=== PATIENT | female | born 1995 | race African-American/Black ===

== ENCOUNTER 2021-10-15 09:29 | Emergency (ER) | payer OTHER, SELFPAY ==
--- NOTE | ~2021-10-15 | CT_ITS ---
EXAMINATION: CT abdomen pelvis w con EXAM DATE: 10/15/2021 11:23 INDICATION: Abdominal pain. Umbilical region pain this morning. History of irritable bowel syndrome. TECHNIQUE: Spiral CT of the abdomen and pelvis was performed following intravenous injection of 100 m L Omnipaque 350. Axial, coronal and sagittal images of the abdomen and pelvis were reviewed. The do se-length product (DLP) for this examination was 693.32 mGy-cm. The exposure was tailored according to patient size (auto mA exposure control), and iterative reconstruction (ASIR) was used as additiona l dose reduction technique. There is no prior study for comparison. FINDINGS: The liver, spleen, adrenal glands and pancreas are unremarkable. Gallbladder is unremarkab le. No biliary obstruction. Portal and splenic veins are patent. Kidneys enhance symmetrically. T here is no hydronephrosis. The uterus is anteverted and morphologically normal. Evidence of a recen tly ruptured right ovarian follicle. The bladder is unremarkable. There is no retroperitoneal or pel jonh lymphadenopathy. Trace free pelvic fluid. The appendix is normal. The stomach and small bowel are unremarkable. There is colonic fluid, corre late for diarrhea. No free intraperitoneal gas. The heart is normal in size. There are no perica rdial or pleural effusions. The lung bases are unremarkable. The bones are unremarkable. IMPRESSION: 1. Colonic fluid, possible diarrhea or gastroenteritis. 2. Recently ruptured right ovarian follicle with trace free pelvic fluid. Reviewed, dictated and finalized at location A. PERSON
[2021-10-15 09:29] VITALS: BP 106/63; PULSE 77; RESP 20; TEMP 36.8; O2SAT 99
[2021-10-15 09:50] LABS: Basophils Percent Auto 0.2 % (0.2-1.2); Eosinophils Percent Auto 0.1 % (0-4.4); Hematocrit 43.7 % (37.0-47.0); Hemoglobin 14.7 g/dL (12.0-15.0); Immature Granulocyte Absolute 0.05 K/mm3 (0.00-0.031); Immature Granulocyte Percent A 0.5 % (0-0.5); Lymphocytes Absolute Auto 0.49 K/mm3 (0.9-3.2); Lymphocytes Percent Auto 4.9 % (18.3-44.2); Mean Corpuscular HGB Conc 33.6 g/dl (32-36); Mean Corpuscular Hemoglobin 31.5 pg (26-34); Mean Corpuscular Volume 93.8 fl (80-100); Monocytes Absolute Auto 0.5 K/mm3 (0.1-0.6); Monocytes Percent Auto 5.3 % (2.6-8.5); Neutrophils Absolute Auto 8.8 K/mm3 (1.3-6.7); Platelet Count Result 286 k/mm3 (150-375); Red Blood Count 4.66 M/mm3 (4.2-5.4); Red Cell Distribution Width 13.1 % (11.5-14.5); White Blood Count 9.9 K/mm3 (4.5-10.0)
--- NOTE | 2021-10-15 09:56 | PC.NURSE ---
RN asked pt. for urine. pt. states she cannot go.
[2021-10-15] MEDS: ONDANSETRON INJ 4 MG/2 ML VIAL IV PUSH (10:02)
[2021-10-15] MEDS: SODIUM CHLORIDE 0.9% IV 1,000 ML 999 ML IV CONT (10:02)
[2021-10-15 10:24] LABS: Alanine Aminotransferase 18 U/L (4-35); Albumin Level 4.2 g/dL (3.5-5.1); Alkaline Phosphatase 62 U/L (38-126); Anion Gap 9 mmol/L (8-16); Aspartate Amino Transferase 29 U/L (14-36); Bilirubin,Total 0.6 mg/dL (0.2-1.3); Blood Urea Nitrogen 14 mg/dL (7-17); Calcium 9.2 mg/dL (8.4-10.2); Carbon Dioxide 25 mmol/L (22-30); Chloride 104 mmol/L (98-107); Estimated CRCL calculation 73 ml/min; Estimated Glomerular Filt Rate > 60; Glucose 116 mg/dL (65-110); Lipase 29 U/L (23-300); Sodium 138 mmol/L (137-145)
[2021-10-15 10:34] LABS: Add Urine Microscopic? YES; Appearance Urine Clear (Clear); Bacteria Urine Trace /hpf; Bilirubin Urine Negative (Negative); Blood Urine Negative (Negative); Color Urine Yellow (Yellow); Glucose Urine UA Negative (Negative); Ketones Urine Negative (Negative); Leukocyte Esterase Ur Negative LEU/UL (Negative); Mucus Urine Heavy /lpf; Nitrate Urine Negative (Negative); Protein Urine 1+ mg/dL (Negative); Squamous Epithelial Cell Urine Many /hpf (Few); Urobilinogen Urine Negative mg/dL (<2.0); WBC Urine 0-3 /hpf
[2021-10-15 11:00] VITALS: BP 99/71; PULSE 74; RESP 14; O2SAT 97
[2021-10-15] MEDS: DICYCLOMINE HCL INJ 20 MG/2 ML VIAL IM (12:52)
[2021-10-15 13:00] VITALS: BP 110/70; PULSE 74; RESP 19; O2SAT 99
--- NOTE | 2021-10-15 13:13 | ED.GENADULT ---
HPI - General Adult General Chief complaint: Abdominal Pain Stated complaint: nausea/vomiting Time Seen by Provider: 10/15/21 09:31 Source: patient Mode of arrival: ambulatory Limitations: no limitations History of Present Illness HPI narrative: Patient is a 26-year-old female presenting with chief complaint of umbilical pain, nausea vomiting and diarrhea that began suddenly at 2 AM. Patient reports she had multiple episodes of vomiting and a few episodes of diarrhea. Patient report abdominal pain around her umbilicus. Patient reports a history of IBS. Patient also reports an 3 weeks ago. Patient reports that she had a follow-up to make sure she did not have retained products, but cannot remember when that appointment was or who she saw. Patient reports that she was seen at the [facility]. Patient denies fever, chills, cough, sob, or chest pain. She states she is a frequent marijuana user. Patient denies medications for her symptoms. Related Data Allergies Allergy/AdvReac Type Severity Reaction Status Date / Time No Known Allergies Allergy Verified 10/15/21 09:32 Review of Systems Review of Systems: CONSTITUTIONAL: Denies fever, chills, or sweats. EYES: Denies visual changes, redness, or discharge. ENT: Denies rhinorrhea, congestion, sore throat, or otalgia. CARDIOVASCULAR: Denies chest pain, palpitations, or edema. RESPIRATORY: Denies cough or dyspnea. GASTROINTESTINAL: Reports abdominal pain, nausea, vomiting, or diarrhea. GENITOURINARY: Denies dysuria or hematuria. SKIN: Denies rash or itching. MUSCULOSKELETAL: Denies back pain, joint pain, or myalgia. NEUROLOGIC: Denies headache, numbness, dizziness, or weakness. PSYCHIATRIC: Denies anxiety or depression. Exam Narrative: GENERAL: Well-appearing, well-nourished, tearful and rolling around the bed complaining of pain. HEAD: Normocephalic, atraumatic. EYES: PERRLA and EOMI. CHEST: Clear to auscultation. No respiratory distress. No wheezes rales or rhonchi HEART: Regular rate and rhythm. No murmur heard. Normal peripheral pulses. ABDOMEN: Soft, diffusely tender around umbilicus, nondistended, normal active bowel sounds. Patient actively vomiting. EXTREMITIES: Normal range of motion. No edema. SKIN: Warm, dry, no rash. NEURO: No focal deficits. Alert and oriented x3. PSYCH: Normal mood and affect. Course Vital Signs Vital signs: Vital Signs Temperature 98.2 F 10/15/21 09:29 Pulse Rate 77 10/15/21 09:29 Respiratory Rate 20 10/15/21 09:29 Blood Pressure 106/63 10/15/21 09:29 Pulse Oximetry 99 10/15/21 09:29 Temperature 98.2 F 10/15/21 09:29 Pulse Rate 70 10/15/21 13:55 Respiratory Rate 20 10/15/21 13:55 Blood Pressure 102/84 10/15/21 13:55 Pulse Oximetry 96 10/15/21 13:55 Medical Decision Making MDM Narrative Medical decision making narrative: Patient has not had continuation of vomiting or diarrhea in the emergency department. Patient vital signs are stable. Patient CT was negative for acute emergent findings. Patient has received hydration and antiemetics. Patient has been able to pass p.o. challenge. She is not orthostatic. Patient's lab work is within normal limits. Patient has been COVID tested. Patient has been given prescriptions for Zofran and Bentyl. Bentyl and medications administered in the emergency department have improved patient's symptoms. Patient instructed to follow-up with her primary care for further investigation into her symptoms. Patient has been instructed to return to emergency department should she develop any worsening or emergent symptoms. Differential Diagnosis Differential Diagnosis: Appendicitis, IBS, retained products, UTI, gastroenteritis, COVID, bowel obstruction Vital Signs Vital Signs: Vital Signs Temperature 98.2 F 10/15/21 09:29 Pulse Rate 77 10/15/21 09:29 Respiratory Rate 20 10/15/21 09:29 Blood Pressure 106/63 10/15/21 09:29 Pulse Oximetry 99
[2021-10-15 13:31] VITALS: BP 111/72; PULSE 70
[2021-10-15 13:32] VITALS: BP 108/69; BP 110/74; PULSE 78; PULSE 92
[2021-10-15 13:55] VITALS: BP 102/84; PULSE 70; RESP 20; O2SAT 96
[2021-10-17 18:18] LABS: SARS-CoV-2 RNA PCR Positive
== END 2021-10-15 13:55 | disposition home or self-care (01) ==
PROVIDERS: Physician Assistant; Emergency Provider Emergency Medicine; PCP Internal Medicine
DX: U07.1 COVID-19 (principal); R11.2 Nausea with vomiting, unspecified; R19.7 Diarrhea, unspecified
CPT/HCPCS: 36415; 74177; 80053; 81001; 81025; 83690; 85025; 96361; 96372; 96374; 96375; 99284; C9803; J0131; J0500; J2405; J7030; Q9967; U0003; U0005

== ENCOUNTER 2022-04-02 21:03 | Emergency (ER) | payer OTHER, SELFPAY ==
--- NOTE | ~2022-04-02 | XR_ITS ---
EXAMINATION: XR ankle RT min 3V INDICATION: Right ankle pain TECHNIQUE: Four views of the right ankle are obtained. COMPARISON: None available FINDINGS: Orthopedic hardware stabilizes a distal fibular fracture. There is soft tissue swelling of ankle. A splint is applied. No new or displaced fracture is identified. IMPRESSION: 1. Postsurgical changes and soft tissue swelling without evidence of new acute osseous abnormality. Reviewed, dictated and finalized at location F.
--- NOTE | ~2022-04-02 | XR_ITS ---
EXAMINATION: XR chest 1V portable INDICATION: Cough TECHNIQUE: Portable AP chest at 2239 hours COMPARISON: 10/27/2005 FINDINGS: The lungs are free of acute opacities. No pleural effusion or pneumothorax. The cardiomedia stinal silhouette is stable. IMPRESSION: 1. No acute cardiopulmonary abnormality. Reviewed, dictated and finalized at location F.
[2022-04-02 21:20] VITALS: BP 115/70; PULSE 87; RESP 18; O2SAT 100
[2022-04-02] MEDS: MORPHINE SULFATE (*CRX) 4 MG/ML INJ IV PUSH (22:48)
[2022-04-02] MEDS: ONDANSETRON INJ 4 MG/2 ML VIAL IV PUSH (22:49)
[2022-04-02] MEDS: LACTATED RINGERS 1,000 ML 999 ML IV CONT (22:49)
[2022-04-02 23:05] LABS: Basophils Percent Auto 0.3 % (0.2-1.2); Eosinophils Absolute Auto 0.3 K/mm3 (0-0.3); Eosinophils Percent Auto 2.4 % (0-4.4); Hematocrit 39.5 % (37.0-47.0); Immature Granulocyte Absolute 0.07 K/mm3 (0.00-0.031); Immature Granulocyte Percent A 0.5 % (0-0.5); Lymphocytes Absolute Auto 2.94 K/mm3 (0.9-3.2); Lymphocytes Percent Auto 21.4 % (18.3-44.2); Mean Corpuscular HGB Conc 32.9 g/dl (32-36); Mean Corpuscular Hemoglobin 30.6 pg (26-34); Mean Corpuscular Volume 92.9 fl (80-100); Mean Platelet Volume 9.9 fl (7.4-10.4); Monocytes Absolute Auto 0.9 K/mm3 (0.1-0.6); Monocytes Percent Auto 6.5 % (2.6-8.5); Neutrophils Absolute Auto 9.5 K/mm3 (1.3-6.7); Neutrophils Percent Auto 68.9 % (45.5-73.1); Platelet Count Result 318 k/mm3 (150-375); Red Blood Count 4.25 M/mm3 (4.2-5.4); Red Cell Distribution Width 13.2 % (11.5-14.5); White Blood Count 13.7 K/mm3 (4.5-10.0)
[2022-04-02 23:06] VITALS: O2SAT 100
[2022-04-02 23:15] VITALS: O2SAT 98
[2022-04-02 23:16] LABS: Alanine Aminotransferase 234 U/L (6-35); Albumin Level 4.3 g/dL (3.5-5.1); Alkaline Phosphatase 157 U/L (38-126); Anion Gap 5 mmol/L (8-16); Aspartate Amino Transferase 130 U/L (14-36); Bilirubin,Total 0.3 mg/dL (0.2-1.3); Blood Urea Nitrogen 11 mg/dL (7-17); Calcium 8.9 mg/dL (8.4-10.2); Carbon Dioxide 28 mmol/L (22-30); Chloride 104 mmol/L (98-107); Estimated CRCL calculation 75 ml/min; Estimated Glomerular Filt Rate > 60; Glucose 91 mg/dL (65-110); Potassium 3.9 mmol/L (3.4-5.0); Sodium 137 mmol/L (137-145)
--- NOTE | 2022-04-02 23:27 | PC.NURSE ---
RN, tech, and ERP into pts room. Pts leg unwrapped to assess pts wound. Wound has no redness, warmth, swelling, or signs of infection. RN and ERP rewrapped pts leg. Pt tolerated well. Pulse intact distally.
[2022-04-02 23:30] VITALS: O2SAT 100
--- NOTE | 2022-04-02 23:30 | ED.GENADULT ---
HPI - General Adult General Chief complaint: Unspecified Stated complaint: poor po intake after surgery Time Seen by Provider: 04/02/22 22:34 History of Present Illness HPI narrative: 27-year-old female who had ankle surgery done about a week ago presents here because for the last few days she has been having all over body aches, sore throat, headache, and she has been feeling nauseous and has not felt like eating or drinking does have pain in her right ankle where the surgery was done but not more pain than usual or since her surgery. Has also been feeling chills. No abdominal pain. No dysuria. Related Data Allergies Allergy/AdvReac Type Severity Reaction Status Date / Time No Known Allergies Allergy Verified 04/02/22 23:31 Review of Systems Review of Systems: CONST: Chils HEENT: Sore throat C/V: No chest pain RESP: No cough GI: Nausea and loss of appetite, no abdominal pain : No dysuria. M/S: Right ankle pain. SKIN: No rash. NEURO: [No headache or focal numbness or weakness] PSYCH: [No depression] [facility] Past Medical History Medical History (Updated 04/03/22 @ 00:01 by Mine Gonsalez MD) No active medical problems Surgical History Surgical History (Updated 04/02/22 @ 23:59 by Mine Gonsalez MD) History of ankle surgery Exam Narrative: EXAMINATION OF ORGAN SYSTEMS/BODY AREAS: Constitutional: Vital signs per nursing GENERAL: Appears uncomfortable but nontoxic. HEAD: Normal with no signs of head trauma. EYES: EOMI, conjunctiva normal ENT: Slight pharyngeal erythema without edema, no tonsils LUNGS: Nonlabored breathing. Clear lungs to auscultation bilaterally HEART: [Regular rate and rhythm] ABD: [Soft], [nontender to palpation] EXT: Normal range of motion SKIN: Incisions clean, dry, intact over the right ankle, no signs of erythema or drainage or tenderness NEURO: [Alert and oriented x 3. No gross focal sensory or strength deficits.] PSYCH: Normal affect Course Vital Signs Vital signs: Vital Signs Pulse Rate 87 04/02/22 21:20 Respiratory Rate 18 04/02/22 21:20 Blood Pressure 115/70 04/02/22 21:20 Pulse Oximetry 100 04/02/22 21:20 Oxygen Delivery Room Air 04/02/22 21:20 Pulse Rate 78 04/03/22 00:12 Respiratory Rate 16 04/03/22 00:12 Blood Pressure 93/81 L 04/03/22 00:12 Pulse Oximetry 100 04/03/22 00:12 Oxygen Delivery Room Air 04/02/22 21:20 Medical Decision Making MDM Narrative Medical decision making narrative: 27-year-old female with several days of symptoms most suggestive of viral syndrome with URI symptoms as well as nausea and vomiting. Lungs are clear bilaterally. Given her recent surgery I am also concerned for possible surgical infection, however I do feel this is less likely given the well appearance of the incisions and no signs of infection. Patient is treated symptomatically with [IV fluids,] ondansetron, morphine. Labs are notable for elevated white count which could possibly be postsurgical, as well as elevated LFTs. She has no abdominal tenderness and I have less concern for any acute emergency given the minimal elevations, and patient insist that she has not been taking too much Tylenol or Percocets. COVID test negative, chest x-ray and ankle x-ray did not show any acute abnormality. On reevaluation, patient feels much better and us tolerating oral intake. I discussed the case with orthopedics on-call who felt patient was stable for discharge home with follow-up with her surgeon on Tuesday, and I discussed it with the aerosol line operator on-call who is amenable to seeing the patient in his clinic. Patient is comfortable going home and discharged home in stable condition with expectant management and strict return precautions. Procedures: Pulse oximetry interpretation - not hypoxic. Review of medical records. Vital Signs Vital Signs: Vital Signs Pulse Rate 87 04/02/22 21:20 Respiratory Rate 18 04/02/22 21:20 Blood Pressure 115/
[2022-04-02 23:41] LABS: SARS-CoV-2 RNA PCR Negative
[2022-04-02 23:48] VITALS: O2SAT 100
[2022-04-03 00:12] VITALS: BP 93/81; PULSE 78; RESP 16; O2SAT 100
== END 2022-04-03 00:24 | disposition home or self-care (01) ==
PROVIDERS: Emergency Provider Emergency Medicine
DX: R79.89 Other specified abnormal findings of blood chemistry (principal); B34.9 Viral infection, unspecified; D72.829 Elevated white blood cell count, unspecified; Z20.822 Contact with and (suspected) exposure to COVID-19
CPT/HCPCS: 71045; 73610; 80053; 85025; 87040; 87081; 87880; 96361; 96374; 96375; 99284; C9803; J2270; J2405; J7120; U0003; U0005

== ENCOUNTER 2022-06-05 13:31 | Observation (INO) | payer OTHER, SELFPAY ==
[2022-06-05] VITALS (9 sets, daily range): BP systolic 108–142; BP diastolic 55–93; PULSE 55–103; RESP 12–21; TEMP 35.8–36.9; O2SAT 100; BMI 35.2
--- NOTE | ~2022-06-05 | CT_ITS ---
EXAMINATION: CT brain wo con DATE: 06/05/2022 14:09 INDICATION: Dizziness, weakness and intermittent blurred vision TECHNIQUE: Computed tomography (CT) of the head was performed without intravenous contrast. Sagittal and coronal reconstructions were performed. The mA was adjusted according to patient size. Iterative reconstruction technique was employed. The dose-length product was 605.33 mGy-cm. COMPARISON: None FINDINGS: No acute intracranial hemorrhage, acute infarction or abnormal extra axial fluid collection. Are prom inent perivascular spaces versus choroid fissure cysts along the caudal aspect of the bilateral basal ganglia. There is symmetric mild enlargement of the left and right lateral ventricles with normal th ird and fourth ventricles. No cisterns remain patent. No mass/mass effect. The orbits, paranasal sinu ses and mastoid air cells are normal. IMPRESSION: 1. Symmetric mild enlargement of the left and right lateral ventricles without evident obstructing le ashwin and with thin basal cisterns and normal size of the third and fourth ventricles which suggests c ommunicating hydrocephalus. Reviewed, dictated and finalized at location A. IMPRESSION: 1. Symmetric mild enlargement of the left and right lateral ventricles without evident obstructing lesion and with thin basal cisterns and normal size of the third and fourth ventricles which suggests communicating hydrocephalus.
--- NOTE | ~2022-06-05 | XR_ITS ---
EXAMINATION: XR chest 1V DATE: 06/05/2022 14:17 INDICATION: Feeling groggy TECHNIQUE: frontal view of the chest was obtained. COMPARISON: Chest radiograph dated 04/02/2022 FINDINGS: The lungs remain clear with no focal airspace opacities, pulmonary edema, pleural effusion or pneumot horax. The cardiomediastinal silhouette is normal. Visualized bones and soft tissues are unremarkable . IMPRESSION: 1. No acute cardiopulmonary disease. Reviewed, dictated and finalized at location A.
--- NOTE | ~2022-06-05 | MR_ITS ---
EXAMINATION: MR brain/brain stem wo/w con DATE: 06/06/2022 07:40 INDICATION: Hydrocephalus. TECHNIQUE: Magnetic resonance imaging (MRI) of the brain and brainstem was performed without and with 17 mL MultiHance intravenous contrast. 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 The corpus callosum is normal. There is no intra cranial hemorrhage, acute infarction, or abnormal intracranial mass lesion. The ventricles are normal in size. The orbits are normal. The paranasal sinuses are clear. The mastoid air cells are normal. IMPRESSION: 1. Absent septum pellucidum. Reviewed, dictated and finalized at location A.
--- NOTE | 2022-06-05 13:48 | ECG_ITS ---
Measurements Intervals [place] Rate: 83 P: 43 TN: 142 QRS: 42 QRSD: 82 T: 0 QT: 344 QTc: 405 Interpretive Statements SINUS RHYTHM NONSPECIFIC T-WAVE ABNORMALITY- INFERIOR LEADS BASELINE ARTIFACT- I, III, AVL, AVF, V3 BORDERLINE ECG NO PREVIOUS ECG AVAILABLE FOR COMPARISON Electronically Signed On 06-05-2022 18:39:33 CDT by Gary Renteria D.O.
--- NOTE | 2022-06-05 14:09 | ED.GENADULT ---
HPI - General Adult General Chief complaint: Unspecified Stated complaint: feels lightheaded, smoked something with a ady Time Seen by Provider: 06/05/22 13:38 Related Data Home Medications Medication Instructions Recorded Confirmed No Home Medications 06/05/22 06/05/22 Allergies Allergy/AdvReac Type Severity Reaction Status Date / Time No Known Allergies Allergy Verified 06/05/22 14:02 [facility] Past Medical History Medical History (Updated 04/04/22 @ 00:01 by Alina Rice) No active medical problems Surgical History Surgical History (Updated 04/02/22 @ 23:59 by Mine Gonsalez MD) History of ankle surgery Course Consultations Consultation #1: DR ORTIZ Date: 06/05/22 Time: 15:06 Vital Signs Vital signs: Vital Signs Temperature 36.9 C 06/05/22 13:54 Pulse Rate 99 06/05/22 13:54 Respiratory Rate 18 06/05/22 13:54 Blood Pressure 141/93 H 06/05/22 13:54 Pulse Oximetry 100 06/05/22 13:54 Oxygen Delivery Room Air 06/05/22 13:54 Temperature 36.9 C 06/05/22 13:54 Pulse Rate 77 06/05/22 13:59 Respiratory Rate 18 06/05/22 13:54 Blood Pressure 141/93 H 06/05/22 13:54 Pulse Oximetry 100 06/05/22 13:54 Oxygen Delivery Room Air 06/05/22 13:54 Medical Decision Making Vital Signs Vital Signs: Vital Signs Temperature 36.9 C 06/05/22 13:54 Pulse Rate 99 06/05/22 13:54 Respiratory Rate 18 06/05/22 13:54 Blood Pressure 141/93 H 06/05/22 13:54 Pulse Oximetry 100 06/05/22 13:54 Oxygen Delivery Room Air 06/05/22 13:54 Temperature 36.9 C 06/05/22 13:54 Pulse Rate 77 06/05/22 13:59 Respiratory Rate 18 06/05/22 13:54 Blood Pressure 141/93 H 06/05/22 13:54 Pulse Oximetry 100 06/05/22 13:54 Oxygen Delivery Room Air 06/05/22 13:54 Lab Data Labs: UCG Bedside Result Negative Reference Range: Negative Imaging Data Radiologist's impression: Impressions Head CT 06/05/22 14:12 IMPRESSION: 1. Symmetric mild enlargement of the left and right lateral ventricles without evident obstructing lesion and with thin basal cisterns and normal size of the third and fourth ventricles which suggests communicating hydrocephalus. Chest X-Ray 06/05/22 14:35 IMPRESSION: 1. No acute cardiopulmonary disease. ECG Data EKG #1: Attestation: I personally reviewed and interpreted this ECG as follows: ECG completion date: 06/05/22 ECG completion time: 14:58 Interpretation: Normal sinus rhythm at 83 bpm, nonspecific T wave abnormality, no previous EKG available for comparison. Discharge Plan Discharge Prescriptions: No Action No Home Medications Follow-up/Referrals: PHYSICIAN,MOTOR [employer]LE EXAMINER [Primary Care Provider] -
[2022-06-05 14:20] LABS: Basophils Percent Auto 0.5 % (0.2-1.2); Eosinophils Absolute Auto 0.2 K/mm3 (0-0.3); Eosinophils Percent Auto 2.6 % (0-4.4); Hematocrit 38.7 % (37.0-47.0); Hemoglobin 12.9 g/dL (12.0-15.0); Immature Granulocyte Absolute 0.04 K/mm3 (0.00-0.031); Immature Granulocyte Percent A 0.5 % (0-0.5); Lymphocytes Absolute Auto 3.34 K/mm3 (0.9-3.2); Lymphocytes Percent Auto 42.8 % (18.3-44.2); Mean Corpuscular HGB Conc 33.3 g/dl (32-36); Mean Corpuscular Hemoglobin 30.6 pg (26-34); Mean Corpuscular Volume 91.9 fl (80-100); Mean Platelet Volume 9.7 fl (7.4-10.4); Monocytes Absolute Auto 0.7 K/mm3 (0.1-0.6); Monocytes Percent Auto 8.7 % (2.6-8.5); Neutrophils Absolute Auto 3.5 K/mm3 (1.3-6.7); Neutrophils Percent Auto 44.9 % (45.5-73.1); Platelet Count Result 334 k/mm3 (150-375); Red Blood Count 4.21 M/mm3 (4.2-5.4); Red Cell Distribution Width 13.4 % (11.5-14.5); White Blood Count 7.8 K/mm3 (4.5-10.0)
[2022-06-05 14:21] LABS: Appearance Urine Clear (Clear); Bilirubin Urine Negative (Negative); Blood Urine Negative (Negative); Color Urine Yellow (Yellow); Glucose Urine UA Negative (Negative); Ketones Urine Negative (Negative); Leukocyte Esterase Ur Negative LEU/UL (Negative); Nitrate Urine Negative (Negative); Protein Urine Negative (Negative); Specific Grav Ur 1.025 (1.001-1.035); Urobilinogen Urine 0.2 mg/dL (<2.0); pH Urine 6.5 (5.0-9.0)
[2022-06-05 14:25] LABS: Alveolar/Arterial O2 Gradient 4.7 mmHg; Base Excess ABG 1.1 mEq/l (+/-2.0); Device ROOM AIR; Fractional Inspired Oxygen 21 %; HCO3 ABG 24.4 mEq/l (22.0-26.0); Modified Allen's Test Pass; Oxygen Content ABG 18.3 %vol (16.0-22.0); Oxygen Saturation ABG 98.1 % (95.0-100.0); Oxyhemoglobin 95.9 % THb (90.0-100.0); PCO2 ABG 34.7 mmHg (35.0-45.0); PO2 ABG 103.5 mmHg (80.0-100.0); PO2 FiO2 Ratio Arterial Blood 4.93 %; Site Drawn RIGHT RADIAL; Total Hemoglobin 13.5 g/dL (12.0-18.0); pH ABG 7.465 (7.350-7.450)
[2022-06-05 14:32] LABS: Alanine Aminotransferase 84 U/L (6-35); Albumin Level 4.2 g/dL (3.5-5.1); Alkaline Phosphatase 106 U/L (38-126); Anion Gap 12 mmol/L (8-16); Aspartate Amino Transferase 40 U/L (14-36); Bilirubin,Total 0.6 mg/dL (0.2-1.3); Blood Urea Nitrogen 10 mg/dL (7-17); Calcium 8.8 mg/dL (8.4-10.2); Carbon Dioxide 27 mmol/L (22-30); Chloride 103 mmol/L (98-107); Creatine Kinase 101 U/L (30-135); Estimated CRCL calculation 78 ml/min; Estimated Glomerular Filt Rate > 60; Glucose 95 mg/dL (65-110); Potassium 4.1 mmol/L (3.4-5.0); Sodium 142 mmol/L (137-145)
[2022-06-05 14:38] LABS: Amphetamine Screen Urine Negative (Negative); Barbiturate Screen Urine Negative (Negative); Benzodiazepines Screen Urine Negative (Negative); Cannabinoid Screen Urine Positive (Negative); Cocaine Screen Urine Negative (Negative); Methadone Screen Urine Negative (Negative); Opiate Screen Urine Negative (Negative); Phencyclidine Screen Urine Negative (Negative)
[2022-06-05 14:41] LABS: Add Urine Microscopic? NO
[2022-06-05 16:39] LABS: SARS-CoV-2 RNA PCR Negative
--- NOTE | 2022-06-05 17:32 | ADMGEN ---
This patient, Ayanna Mendes, was admitted to Medical Room 347-. Patient/family oriented to hospital policies and general routines including ID bracelet, bed and alarms, visiting hours, pain management, procedures, bathroom and other care routines, personal items, smoking policy, room service/diet, and visiting hours. Information on how to activate the Rapid Response Team has been discussed. Patient/Family are encouraged to report perceived risks to care and to ask questions if they do not understand what they are told or what they should do.
--- NOTE | 2022-06-05 18:06 | PC.NURSE ---
RN noticed multiple slit roche to left forearm. However, pt stated never had thoughts of harming self or anyone else.
--- NOTE | 2022-06-05 19:30 | PM.IMHP ---
H&P: HPI History of Present Illness Date/Time: 06/05/22 20:00 Chief Complaint: Dizziness. Narrative: This is a pleasant 27-year-old female with no significant medical history who presented to the emergency department via private vehicle for evaluation of dizziness. Last evening she was with an acquaintance and he offered her marijuana. It sounds as though they shared a joint and about 30 minutes thereafter she reports feeling strange, not atypical feeling after smoking marijuana. She describes feelings of dizziness and vertigo associated with overwhelming fatigue and foggy thinking. She went immediately home as she was concerned that perhaps there was something in the marijuana that was making her feel that way. Early this morning she was still feeling strangely and she went to the ER at [facility] where they did labs in a toxicology screen. According to the patient her labs were reportedly unremarkable and her toxicology screen tested positive for marijuana and opiates (she has a prescription for Percocet that she took after she had a repair of a right foot fracture with her last dose being about for 5 days ago). She was discharged home and was told that her symptoms were likely due to polysubstance abuse. She went home for a bit but decided to come to [place] for [address]nd opinion. CT of the head today showed symmetric mild enlargement of the left and right lateral ventricles without evident obstructing lesion suggestive of communicating hydrocephalus. ED physician spoke with the on-call neurosurgeon who would like the patient admitted for MRI tomorrow. With further questioning the patient has been increasingly fatigued over the last couple of months and she has had nausea at the same time every evening. 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 She has no current complaints but is anxious about her imaging results and is worried that she may need surgery. Review of Systems Review of Systems: Twelve systems were reviewed and are negative except for as per HPI. [facility] Past Medical History Medical History No active medical problems Surgical History Surgical History (Updated 06/05/22 @ 20:08 by Monica Membreno PA-C) History of ankle surgery History of tonsillectomy Family History Family History (Updated 06/05/22 @ 21:03 by Monica Membreno PA-C) Other Family history non-contributory Social History Social History (Updated 06/05/22 @ 21:04 by Monica Membreno PA-C) Social History: Surrogate medical decision maker: Jessica Beckett, mother. Code status: Full code. Smoking packs per day: 0.5 Smoking cigarettes per day: 10.0 Smoking status: Current every day smoker Alcohol intake: never Substance use: current Substance use type: marijuana Other substance usage details: Occasional marijuana use. Last use: Last took Percocet for right foot fracture the last week of May 2022. Additional living arrangements comments: The patient lives with her daughter in [place]. Additional occupation/education comments: Works in [employer] at [employer]. Spiritual care concerns: No Meds Home Medications and Allergies Home Medications Medication Instructions Recorded Confirmed Type No Home Medications 06/05/22 06/05/22 History Allergies Allergy/AdvReac Type Severity Reaction Status Date / Time No Known Allergies Allergy Verified 06/05/22 14:02 Vital Signs Vital Signs - 24 hr 06/05/22 13:54 06/05/22 13:59 06/05/22 13:47 Temperature 98.5 F Pulse Rate 99 77 103 H Respiratory Rate 18 21 H Blood Pressure 141/93 H 123/87 Pulse Oximetry 100 100 Oxygen Delivery Room Air 06/05/22 16:03 06/05/22 16:54 06/05/22 17:15 Temperature 96.4 F L Pulse Rate 75 73 68 Respiratory Rate 21 H
[2022-06-06] VITALS: PULSE 65
[2022-06-06 04:00] VITALS: PULSE 58
[2022-06-06 05:16] VITALS: BP 104/50; PULSE 54; RESP 18; TEMP 36.5; O2SAT 100
[2022-06-06 08:00] VITALS: PULSE 61
--- NOTE | 2022-06-06 11:13 | WPDCN ---
Assessment and Plan Assessment and plan (1) Cerebral ventriculomegaly: Code(s): G93.89 - Other specified disorders of brain Status: Acute Plan Ms. Mendes is a 27-year-old female who presented to the hospital yesterday with acute-onset dizziness shortly after marijuana use on Tuesday night. Workup in the ER included CT head which was concerning for bilateral lateral ventriculomegaly. MRI brain was obtained this morning and did not show any obstructive lesion; however, I disagree with the read that the ventricles are normal in size. I do think that her lateral ventricles are enlarged, although I am not convinced that this is the cause of her symptoms as there is a good gyral/sulcal pattern on MRI and there is no evidence of transependymal flow. While she has some symptoms which could be related to hydrocephalus, she also has had surgery recently as well as some marijuana and opioid use which confound her presentation. Additionally, it seems she has not had any medical management of her dizziness, and she indicates she has not had much fluid intake, raising the possibility of some dehydration which could certainly be contributing to her symptoms. We discussed her imaging as well as symptoms typically associated for hydrocephalus. We also discussed treatment for hydrocephalus as well as options for what to do next including continuing to monitor her symptoms in the hospital vs discharging and having her follow up with me in clinic in a few days. She prefers short-term follow up. I think this is reasonable but stressed that if any symptoms worsen, she should return to the hospital right away. She expressed understanding. Plan: -She will follow up with me this coming Tuesday in clinic. My office will contact her to arrange this. -Consider medical treatment of her dizziness and rehydration to help with current symptoms HPI Data of Consult Date/Time: 06/06/22 11:13 Requesting Physician: Calvin Herring MD Primary Care Provider: PHYSICAL SCIENCES INSTRUCTOR PHYSICIAN Consult Narrative Narrative: Ayanna Mendes is a 27 year old female with history of recent surgery for a fractured foot who presented to the ER yesterday for evaluation of acute-onset dizziness about 30 minutes after smoking marijuana on Tuesday night. She was concerned the marijuana was laced with something as she smokes regularly but has not had that reaction before. Toxicology screen was positive for marijuana and opioids. CT head was obtained showing dilated lateral ventricles, and she was admitted overnight in order to obtain MRI brain this morning. For the last 10-14 days, the patient has noticed some mild headaches, nausea in the evenings, and intermittent blurry vision. She has had a long history of short-term memory issues which she describes as forgetting where she puts her things. She denies any urinary/incontinence issues. She did undergo surgery on her right ankle 10 days ago after which she was taking percocet for a few days and was using crutches. She reports feeling particularly fatigued since surgery. She states that today she still feels high but also notes not taking in much food/drink and has not tried any medication to help her symptoms. Review of Systems Review of Systems: 10-point ROS was conducted and was positive for: fatigue, mild headaches, intermittent blurry vision, nausea. PMFSH Past Medical History Medical History No active medical problems Surgical History Surgical History History of ankle surgery History of tonsillectomy Family History Family History Other Family history non-contributory Social History Social History Social History: Surrogate medical decision maker: Jessica Beckett, mother. Code status: Full code. Smoking
--- NOTE | 2022-06-06 11:31 | PM.DS ---
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 Dr. Hatch was consulted by the ED physician and her input is greatly appreciated. Brain MRI Was completed without acute abnormality per radiologist report. (2) Dizziness: Code(s): R42 - Dizziness and giddiness Status: Acute Assessment and Plan: Initially patient thought it was perhaps related to the marijuana that she smoked however she has had issues with her balance recently in addition to several other symptoms as per HPI. May very well be secondary to above. DS: Summary Hospital Course Reason for hospitalization: dizziness Hospital Course: Ayanna Mendes is a 27 yo female with no significant medical history. She presented to the emergency department from home for evaluation of dizziness. On the evening prior to admission she reportedly smoked marijuana from an acquaintance. Approximately 30 minutes after she reported feeling strange which is not typical. She also describes feelings of dizziness and vertigo, as well as overwhelming fatigue and foggy thinking. She also reported intermittent tinnitus, blurry vision, and changes incoordination. 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 Symptoms have been intermittent for the past month. She reportedly went to the ER at [facility] where she had a toxicology screen and her symptoms were attributed to a presence of marijuana and opiates. The patient is taking Percocet following right foot fracture repair approximately 5 days ago. She decided to go to [facility] for 2nd opinion. CT of the head did shows symmetric mild enlargement of the left and right ventricles without evidence of obstructing lesions suggestive of communicating hydrocephalus. The on-call neurosurgeon, Dr. Hatch, was consulted and recommended MRI. The patient was referred for observation. MRI was brain was completed without gross abnormality. Upon my assessment patient denied complaints of dizziness, vision changes, foggy thinking, but did endorse persistent fatigue. She was evaluated by Dr. Hatch during her hospital stay who recommended patient be followed up in the office on Tuesday. The patient was discharged home in stable condition. Vital signs temp 97.7? F, heart rate 61, respirations 18, blood pressure 104/50, SpO2 100% on room air. She was ambulating independently with steady gait without complaints of dizziness. she was counseled on when to seek further care and importance of follow-up with Neurosurgery. Status at Discharge Cognitive/behavioral status at discharge: Alert and oriented x4 Functional status at discharge: independent ambulation Overall status at discharge: patient is progressing back to baseline Time Spent with Patient Time attestation: Total time spent providing and/or coordinating discharge services: Time spent: Greater than 30 minutes Exam Narrative: General: Well-developed female supine in bed in no distress. HEENT: Normocephalic, atraumatic. PERRL, EOMI. no nystagmus. Sclera anicteric. No lid lag. Oral mucosa moist. hearing grossly intact Neck: Supple. no lymphadenopathy, thyroid nodularity, or JVD Respiratory: Lungs are clear to auscultation bilaterally. respirations even and unlabored Cardiovascular: Regular rate and rhythm with S1-S2. no murmur, gallop, or rubs Gastrointestinal: Abdomen is soft, nontender, and nondistended with positive bowel sounds. Skin: Warm and dry. No rash or lesions on limited exam. Extremities:
--- NOTE | 2022-06-08 21:28 | ED.GENADULT ---
HPI - General Adult General Chief complaint: Unspecified Stated complaint: feels lightheaded, smoked something with a ady Time Seen by Provider: 06/05/22 13:38 Related Data Home Medications Medication Instructions Recorded Confirmed No Home Medications 06/05/22 06/05/22 Allergies Allergy/AdvReac Type Severity Reaction Status Date / Time No Known Allergies Allergy Verified 06/05/22 14:02 [facility] Past Medical History Medical History No active medical problems Surgical History Surgical History History of ankle surgery History of tonsillectomy Family History Family History Other Family history non-contributory Social History Social History Social History: Surrogate medical decision maker: Jessica Beckett, mother. Code status: Full code. Smoking packs per day: 0.5 Smoking cigarettes per day: 10.0 Smoking status: Current every day smoker Alcohol intake: never Substance use: current Substance use type: marijuana Other substance usage details: Occasional marijuana use. Last use: Last took Percocet for right foot fracture the last week of May 2022. Additional living arrangements comments: The patient lives with her daughter in [place]. Additional occupation/education comments: Works in [employer] at [employer]. Spiritual care concerns: No Course Vital Signs Vital signs: Vital Signs Pulse Rate 103 H 06/05/22 13:47 Respiratory Rate 21 H 06/05/22 13:47 Blood Pressure 123/87 06/05/22 13:47 Pulse Oximetry 100 06/05/22 13:47 Temperature 36.5 C 06/06/22 05:16 Pulse Rate 61 06/06/22 08:00 Respiratory Rate 18 06/06/22 05:16 Blood Pressure 104/50 L 06/06/22 05:16 Pulse Oximetry 100 06/06/22 05:16 Oxygen Delivery Room Air 06/06/22 08:20 Medical Decision Making Vital Signs Vital Signs: Vital Signs Pulse Rate 103 H 06/05/22 13:47 Respiratory Rate 21 H 06/05/22 13:47 Blood Pressure 123/87 06/05/22 13:47 Pulse Oximetry 100 06/05/22 13:47 Temperature 36.5 C 06/06/22 05:16 Pulse Rate 61 06/06/22 08:00 Respiratory Rate 18 06/06/22 05:16 Blood Pressure 104/50 L 06/06/22 05:16 Pulse Oximetry 100 06/06/22 05:16 Oxygen Delivery Room Air 06/06/22 08:20 Lab Data Result diagrams: 06/05/22 14:01 06/05/22 14:01 Labs: Lab Results 06/05/22 06/05/22 06/05/22 Range/Units 14:01 14:01 14:01 WBC 7.8 (4.5-10.0) K/mm3 RBC 4.21 (4.2-5.4) M/mm3 Hgb 12.9 (12.0-15.0) g/dL Hct 38.7 (37.0-47.0) % MCV 91.9 (80-100) fl MCH 30.6 (26-34) pg MCHC 33.3 (32-36) g/dl RDW 13.4 (11.5-14.5) % Plt Count 334 (150-375) k/mm3 MPV 9.7 (7.4-10.4) fl Immature Gran % (Auto) 0.5 (0-0.5) % Neut % (Auto) 44.9 L (45.5-73.1) % Lymph % (Auto) 42.8 (18.3-44.2) % [place] % (Auto) 8.7 H (2.6-8.5) % Eos % (Auto) 2.6 (0-4.4) % Baso % (Auto) 0.5 (0.2-1.2) % Lymph # (Auto) 3.34 H (0.9-3.2) K/mm3 [place] # (Auto) 0.7 H (0.1-0.6) K/mm3 Eos # (Auto) 0.2 (0-0.3) K/mm3 Baso # (Auto) 0.0 (0.0-0.1) K/mm3 Abs Immat Gran (auto) 0.04 H (0.00-0.031) K/mm3 Absolute Neuts (auto) 3.5 (1.3-6.7) K/mm3 Absolute Nucleated RBC 0.0 (0.0-0.012) K/mm3 Nucleated RBC % 0.0 (0.0-0.2) % Sodium (137-145) mmol/L Potassium (3.4-5.0) mmol/L Chloride (98-107) mmol/L Carbon Dioxide (22-30) mmol/L Anion Gap (8-16) mmol/L BUN (7-17) mg/dL Creatinine (0.7-1.0) mg/dL Estim Creat Clear Calc ml/min Estimated GFR (59 - ) Glucose (65-110) mg/dL Calcium (8.4-10.2) mg/dL Total Bilirubin (0.2-1.3) mg/dL AST (14-36) U/L ALT (6-35) U/L Alkaline Phosphatase
== END 2022-06-06 12:45 | disposition home or self-care (01) ==
LOC: ANHED 14:36 → ANH3MED 17:12
PROVIDERS: Admitting Provider Internal Medicine; Emergency Provider Emergency Medicine; Visit Provider Nurse Practitioner Family
DX: G91.0 Communicating hydrocephalus (principal); R42 Dizziness and giddiness; Q04.4 Septo-optic dysplasia of brain; G93.89 Other specified disorders of brain; Z20.822 Contact with and (suspected) exposure to COVID-19; F12.90 Cannabis use, unspecified, uncomplicated; F11.90 Opioid use, unspecified, uncomplicated; F17.210 Nicotine dependence, cigarettes, uncomplicated
CPT/HCPCS: 36415; 36600; 70450; 70553; 71045; 80053; 80307; 81003; 81025; 82550; 82805; 85025; 93005; 99285; A9577; C9803; G0378; G0379; U0003; U0005

== ENCOUNTER 2022-06-09 12:24 | Outpatient (CLI) | payer OTHER, SELFPAY ==
--- NOTE | ~2022-06-09 | CT_ITS ---
EXAMINATION: CT brain wo con INDICATION: Hydrocephalus COMPARISON: 06/05/2022 TECHNIQUE: Standard unenhanced head CT. The dose-length product (DLP) was 605.33 mGy-cm. The mA was a djusted according to patient size. Iterative reconstruction technique was employed. FINDINGS: There is no intracranial hemorrhage, acute infarction, or abnormal mass lesion. 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 The ventricles are normal in size. There is no abnormal mass ef fect or midline shift. The painter-white matter differentiation is normal. The basal cisterns are patent . The orbits are normal. The paranasal sinuses, mastoids and calvarium are normal. IMPRESSION: 1. No acute intracranial abnormality, absent septum pellucidum. Reviewed, dictated and finalized at location B.
== END 2022-06-09 12:25 | disposition home or self-care (01) ==
PROVIDERS: Visit Provider Neurological Surgery
DX: G91.0 Communicating hydrocephalus (principal)
CPT/HCPCS: 70450

== ENCOUNTER 2022-08-11 17:59 | Emergency (ER) | payer OTHER, SELFPAY ==
--- NOTE | ~2022-08-11 | CT_ITS ---
EXAMINATION: CT brain wo con DATE: 08/11/2022 22:12 INDICATION: headache . TECHNIQUE: Computed tomography (CT) of the head was performed without intravenous contrast. The mA wa s adjusted according to patient size. Iterative reconstruction technique was employed. The dose-lengt h product was 529.67 mGy-cm. COMPARISON: CT brain 06/09/2022, MR brain 06/06/2022 FINDINGS: No acute intracranial hemorrhage or extra-axial fluid collection. No hydrocephalus, mass, or herniation. No acute ischemic infarct. Unremarkable dural venous sinus attenuation. No acute osseous abnormality. The aerated spaces are clear. Absent septum pellucidum with corresponding changes and ventricular morphology. 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 IMPRESSION: No acute intracranial process. Reviewed, dictated and finalized at location K. 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
[2022-08-11 19:56] VITALS: BP 115/73; PULSE 86; RESP 14; TEMP 37.3; O2SAT 98
--- NOTE | 2022-08-11 21:13 | PC.NURSE ---
patient arrives with normal ct scan results from june placed on chart for provider
[2022-08-11 21:37] LABS: Basophils Absolute Auto 0.1 K/mm3 (0.0-0.1); Basophils Percent Auto 0.5 % (0.2-1.2); Eosinophils Absolute Auto 0.6 K/mm3 (0-0.3); Eosinophils Percent Auto 5.2 % (0-4.4); Hematocrit 36.2 % (37.0-47.0); Immature Granulocyte Absolute 0.03 K/mm3 (0.00-0.031); Immature Granulocyte Percent A 0.3 % (0-0.5); Lymphocytes Absolute Auto 4.04 K/mm3 (0.9-3.2); Lymphocytes Percent Auto 38.1 % (18.3-44.2); Mean Corpuscular HGB Conc 33.1 g/dl (32-36); Mean Corpuscular Hemoglobin 30.5 pg (26-34); Mean Corpuscular Volume 91.9 fl (80-100); Mean Platelet Volume 9.5 fl (7.4-10.4); Monocytes Percent Auto 9.3 % (2.6-8.5); Neutrophils Absolute Auto 4.9 K/mm3 (1.3-6.7); Neutrophils Percent Auto 46.6 % (45.5-73.1); Platelet Count Result 333 k/mm3 (150-375); Red Blood Count 3.94 M/mm3 (4.2-5.4); Red Cell Distribution Width 13.1 % (11.5-14.5); White Blood Count 10.6 K/mm3 (4.5-10.0)
[2022-08-11 21:48] LABS: Prothrombin Time 12.9 Seconds (11.1-14.7)
[2022-08-11 21:49] LABS: Partial Thromboplastin Time 26.5 SECONDS (22.3-36.8)
[2022-08-11 21:57] LABS: Alanine Aminotransferase 15 U/L (6-35); Albumin Level 3.8 g/dL (3.5-5.1); Alkaline Phosphatase 50 U/L (38-126); Anion Gap 7 mmol/L (8-16); Aspartate Amino Transferase 18 U/L (14-36); Bilirubin,Total 0.2 mg/dL (0.2-1.3); Blood Urea Nitrogen 10 mg/dL (7-17); Calcium 8.8 mg/dL (8.4-10.2); Carbon Dioxide 27 mmol/L (22-30); Chloride 105 mmol/L (98-107); Estimated CRCL calculation 91 ml/min; Estimated Glomerular Filt Rate > 60; Glucose 91 mg/dL (65-110); Potassium 3.9 mmol/L (3.4-5.0); Sodium 139 mmol/L (137-145)
--- NOTE | 2022-08-11 22:02 | PC.NURSE ---
patient states she has not taken any tylenol of ibuprofen for her headache
--- NOTE | 2022-08-11 22:56 | ED.GENADULT ---
HPI - General Adult General Chief complaint: Neuro Symptoms/Deficit Stated complaint: SOLIMAN with blurred vision 1 mo- poss hx hydrocephalus Time Seen by Provider: 08/11/22 21:27 History of Present Illness HPI narrative: 27-year-old female present to the emergency department for evaluation of 2 days of headache and right-sided facial pain/twitching. Patient denies any falls or injuries. Patient denies any fevers. Related Data Home Medications Medication Instructions Recorded Confirmed No Home Medications 06/05/22 06/11/22 Allergies Allergy/AdvReac Type Severity Reaction Status Date / Time No Known Allergies Allergy Verified 08/11/22 18:01 Review of Systems Review of Systems: CONSTITUTIONAL: Denies fever, chills, or sweats. EYES: Denies visual changes, redness, or discharge. ENT: Denies rhinorrhea, congestion, sore throat, or otalgia. CARDIOVASCULAR: Denies chest pain, palpitations, or edema. RESPIRATORY: Denies cough or dyspnea. GASTROINTESTINAL: Denies abdominal pain, nausea, vomiting, or diarrhea. GENITOURINARY: Denies dysuria or hematuria. SKIN: Denies rash or itching. MUSCULOSKELETAL: Denies back pain, joint pain, or myalgia. NEUROLOGIC: See HPI [facility] Past Medical History Medical History No active medical problems Surgical History Surgical History History of ankle surgery History of tonsillectomy Family History Family History Other Family history non-contributory Social History Social History Social History: Surrogate medical decision maker: Jessica Beckett, mother. Code status: Full code. Smoking packs per day: 0.5 Smoking cigarettes per day: 10.0 Smoking status: Current every day smoker Alcohol intake: never Substance use: current Substance use type: marijuana Other substance usage details: Occasional marijuana use. Last use: Last took Percocet for right foot fracture the last week of May 2022. Additional living arrangements comments: The patient lives with her daughter in [place]. Additional occupation/education comments: Works in [employer]. Spiritual care concerns: No Exam Narrative: APPEARANCE: Well appearing, no pain, no distress, well-nourished. HEAD: normocephalic, atraumatic. EYES: PERRLA/EOMI, conjunctivae clear. NOSE: Normal no drainage EARS:TMS clear with good light reflex. THROAT: Pharynx clear, no exudate. NECK: Supple. No adenopathy, no masses. RESPIRATORY: Airway patent, respirations nonlabored. Clear to auscultation bilaterally, no rales, rhonchi, wheezing. CARDIOVASCULAR: Regular rate and rhythm without murmurs rubs or gallops. ABDOMINAL: Soft, nontender, nondistended, normal bowel sounds MUSCULOSKELETAL: Moves all extremities. Strength/ROM intact, No edema, No calf tenderness. NEURO: Alert. Cranial nerves II through XII intact. Grossly intact. SKIN: Warm, dry. Normal Color PSYCHIATRIC: Normal affect/mood. Course Course Emergency Course: Head CT on 06/09/2022 impression: No acute intracranial abnormality, absent septum pellucidum. Head CT was performed and showed large ventricles and MRI did not show any obstructing lesion. Neurology felt that these are her normal ventricles. Patient was updated on the results of her CT today. Patient did feel improved with treatment. All question concerns were addressed. Patient was comfortable with the plan for discharge and close follow-up. Vital Signs Vital signs: Vital Signs Temperature 99.2 F 08/11/22 19:56 Pulse Rate 86 08/11/22 19:56 Respiratory Rate 14 08/11/22 19:56 Blood Pressure 115/73 08/11/22 19:56 Pulse Oximetry 98 08/11/22 19:56 Oxygen Delivery Room Air 08/11/22 19:56 Temperature 99.2 F 08/11/22 19:56 Pulse Rate 65 08/12/22
[2022-08-11] MEDS: KETOROLAC 30 MG/ML VIAL (*BKC) IM (23:38)
[2022-08-12 00:13] VITALS: BP 116/65; PULSE 65; RESP 16; O2SAT 100
== END 2022-08-12 00:14 | disposition home or self-care (01) ==
PROVIDERS: Emergency Medicine; Emergency Provider Emergency Medicine
DX: R51.9 Headache, unspecified (principal); F17.210 Nicotine dependence, cigarettes, uncomplicated
CPT/HCPCS: 36415; 70450; 80053; 85025; 85610; 85730; 96372; 99284; J1885